=== PATIENT | female | born 1935 | race Caucasian/White ===

== ENCOUNTER 2018-05-26 10:22 | Inpatient (IN) | payer MEDICARE ==
[~2018-05-26] VITALS: Ht 160 cm; Wt 73.0 kg
[~2018-05-26 10:22] MED LIST: METH500T PO; PHEN-873 PO
[2018-05-26 11:12] LABS: ALANINE AMINOTRANSFERASE 23 U/L (12-78); ALBUMIN 3.7 G/DL (3.4-5.0); ALKALINE PHOSPHATASE 87 IU/L (46-116); ANION GAP 8 (8-16); ASPARTATE AMINO TRANSFERASE 17 U/L (10-37); BILIRUBIN,TOTAL 0.3 MG/DL (0.1-1.0); BLOOD UREA NITROGEN 14 MG/DL (7-18); BUN/CREATININE RATIO 15.2 (6.6-38.0); CALCIUM 9.3 MG/DL (8.5-10.1); CHLORIDE 96 MMOL/L (99-107); CREATININE 0.92 MG/DL (0.40-0.90); GLUCOSE 84 MG/DL (70-104); POTASSIUM 3.9 MMOL/L (3.5-5.1); SODIUM 131 MMOL/L (135-145); TOTAL PROTEIN 7.3 G/DL (6.4-8.2); eGFR 59 ML/MIN
[2018-05-26 11:15] LABS: BASOPHILS % (AUTO) 0.3 % (0-1); EOSINOPHILS # (AUTO) 0.1 X10'3 (0-0.9); EOSINOPHILS % (AUTO) 1.4 % (0-6); HEMATOCRIT 41.6 % (35.0-45.0); HEMOGLOBIN 14.2 g/dl (12.0-16.0); LYMPHOCYTES # (AUTO) 1.2 X10'3 (1.1-4.8); LYMPHOCYTES % (AUTO) 15.2 % (21-51); MEAN CORPUSCULAR HEMOGLOBIN 30.7 PG (27.0-31.0); MEAN CORPUSCULAR HGB CONC 34.2 % (33.0-36.5); MEAN CORPUSCULAR VOLUME 89.9 FL (78-98); MEAN PLATELET VOLUME 7.2 FL (7.4-10.4); MONOCYTES # (AUTO) 0.9 X10'3 (0-0.9); MONOCYTES % (AUTO) 11.4 % (2-12); NEUTROPHILS # (AUTO) 5.6 X10'3 (1.8-7.7); NEUTROPHILS % (AUTO) 71.7 % (42-75); PLATELET COUNT 331 X10'3 (140-440); RED BLOOD COUNT 4.63 X10'6 (4.20-5.60); RED CELL DISTRIBUTION WIDTH 13.5 % (11.5-14.5); WHITE BLOOD COUNT 7.8 X10'3 (4.5-11.0)
[2018-05-26] MEDS ORDERED: normal saline 1000ml 1,000 ML IV ONE (11:15)
[2018-05-26] MEDS ORDERED: acetaminophen 325mg tablet PO ONE (11:40)
[2018-05-26] MEDS ORDERED: iohexol 350MG/ML 100ml bottle IV ONE (11:55)
[2018-05-26] MEDS ORDERED: normal saline 500ml IV soln 500 ML IV ONE (13:10)
[2018-05-26] MEDS: normal saline 1000ml 1,000 ML IV SCH ×2 (13:20→23:40)
[2018-05-26 13:43] LABS: D-DIMER 0.22 MG/L FEU (0-0.50)
[2018-05-26 13:47] LABS: LIPASE 144 U/L (73-393)
[2018-05-26] MEDS ORDERED: HYDROcodone/acetaminophen 5mg/325mg tablet PO PRN (13:50)
[2018-05-26] MEDS ORDERED: morphine 4 MG/ML inj SYRINge IV PRN ×2 (13:50)
[2018-05-26] MEDS ORDERED: mag hydrox/Alum hydrox/simeth 30ml oral suspension PO PRN (13:50)
[2018-05-26] MEDS ORDERED: magnesium hydroxide 30ml (MOM) UD suspension PO PRN (13:50)
[2018-05-26] MEDS ORDERED: acetaminophen 650mg rectal suppository RC PRN (13:50)
[2018-05-26] MEDS ORDERED: bisacodyl 10mg suppository rectal RC PRN (13:50)
[2018-05-26] MEDS ORDERED: HYDROcodone/acetaminophen 10/325mg tab PO PRN (13:50)
[2018-05-26] MEDS ORDERED: metoclopramide 5 mg/ml inj IV PRN (13:50)
[2018-05-26] MEDS ORDERED: ondansetron/PF 4mg/2ml inj IV PRN (13:50)
[2018-05-26] MEDS ORDERED: acetaminophen 325mg tablet PO PRN ×2 (13:50)
[2018-05-26] MEDS ORDERED: nitroGLYCERIN 0.4mg SUBLingual tab SL PRN (14:00)
[2018-05-26] MEDS ORDERED: metoprolol tartrate 1mg/ml inj IV PRN (14:00)
[2018-05-26] MEDS ORDERED: regadenoson 0.4mg/5ml syringe IV ONE (14:00)
[2018-05-26] MEDS ORDERED: CAFFEINE CITRATE 60 MG/3 ML injection vial IV PRN (14:00)
[2018-05-26 14:09] LABS: PARTIAL THROMBOPLASTIN TIME 27 SECONDS (22-32); PROTHROMBIN TIME 10.1 SECONDS (9.0-12.0)
[2018-05-26] MEDS ORDERED: LEVO25TA2 PO (14:36)
[2018-05-26] MEDS ORDERED: PRAV10TA39 PO (14:36)
[2018-05-26] MEDS ORDERED: PREVCR VG (14:36)
[2018-05-26] MEDS ORDERED: MULT-38 PO (14:36)
[2018-05-26] MEDS ORDERED: OMEP40CA37 PO (14:36)
[2018-05-26] MEDS ORDERED: PROP1DRO7 OP (14:36)
[2018-05-26] MEDS ORDERED: MAGN400O6 PO (14:36)
[2018-05-26] MEDS ORDERED: METH479P PO (14:36)
[2018-05-26] MEDS ORDERED: OSC500T PO (14:36)
[2018-05-26] MEDS ORDERED: SENN-166 PO (14:36)
[2018-05-26 16:25] VITALS: BP 172/66
[2018-05-26 18:00] VITALS: BP 141/56
[2018-05-26] MEDS: heparin, porcine 5000 units/ml vial SQ SCH (20:00)
[2018-05-26] MEDS: docusate sod 100mg capsule PO SCH (20:23)
[2018-05-26] MEDS: pantoprazole 40 MG vial IV SCH (20:23)
[2018-05-26] MEDS ORDERED: temazepam 15mg capsule PO PRN (21:00)
[2018-05-27] VITALS (23 sets, daily range): BP systolic 135–176; BP diastolic 55–81
[2018-05-27 04:41] LABS: BASOPHILS % (AUTO) 0.8 % (0-1); EOSINOPHILS # (AUTO) 0.1 X10'3 (0-0.9); EOSINOPHILS % (AUTO) 2.1 % (0-6); HEMATOCRIT 38.5 % (35.0-45.0); HEMOGLOBIN 13.1 g/dl (12.0-16.0); LYMPHOCYTES # (AUTO) 1.2 X10'3 (1.1-4.8); LYMPHOCYTES % (AUTO) 21.3 % (21-51); MEAN CORPUSCULAR HEMOGLOBIN 30.6 PG (27.0-31.0); MEAN CORPUSCULAR HGB CONC 33.9 % (33.0-36.5); MEAN CORPUSCULAR VOLUME 90.1 FL (78-98); MEAN PLATELET VOLUME 7.2 FL (7.4-10.4); MONOCYTES # (AUTO) 0.7 X10'3 (0-0.9); MONOCYTES % (AUTO) 12.1 % (2-12); NEUTROPHILS # (AUTO) 3.5 X10'3 (1.8-7.7); NEUTROPHILS % (AUTO) 63.7 % (42-75); PLATELET COUNT 298 X10'3 (140-440); RED BLOOD COUNT 4.28 X10'6 (4.20-5.60); RED CELL DISTRIBUTION WIDTH 13.8 % (11.5-14.5); WHITE BLOOD COUNT 5.5 X10'3 (4.5-11.0)
[2018-05-27 06:29] LABS: ALANINE AMINOTRANSFERASE 24 U/L (12-78); ALBUMIN 3.3 G/DL (3.4-5.0); ALBUMIN/GLOBULIN RATIO 1.1 (1.1-1.5); ALKALINE PHOSPHATASE 67 IU/L (46-116); ANION GAP 11 (8-16); ASPARTATE AMINO TRANSFERASE 21 U/L (10-37); BILIRUBIN,TOTAL 0.3 MG/DL (0.1-1.0); BLOOD UREA NITROGEN 11 MG/DL (7-18); BUN/CREATININE RATIO 14.5 (6.6-38.0); CALCIUM 8.5 MG/DL (8.5-10.1); CHLORIDE 103 MMOL/L (99-107); CREATININE 0.76 MG/DL (0.40-0.90); GLUCOSE 88 MG/DL (70-104); SODIUM 136 MMOL/L (135-145); TOTAL CARBON DIOXIDE 21.9 MMOL/L (24-32); TOTAL PROTEIN 6.3 G/DL (6.4-8.2); eGFR 73 ML/MIN
[2018-05-27] MEDS: lisinopril 5mg tablet PO SCH ×2 (08:00→12:12)
[2018-05-27] MEDS ORDERED: atorvastatin 10mg tablet PO SCH (08:00)
[2018-05-27] MEDS ORDERED: nitroGLYCERIN 0.1mg/hour patch TD SCH (08:00)
[2018-05-27] MEDS: heparin, porcine 5000 units/ml vial SQ SCH (08:00)
[2018-05-27] MEDS ORDERED: CAFFEINE CITRATE 60 MG/3 ML injection vial IV ONE (09:07)
[2018-05-27] MEDS ORDERED: regadenoson 0.4mg/5ml syringe IV ONE (09:08)
[2018-05-27] MEDS ORDERED: pneumococcal 23-VAL P-sac vacc 25 mcg/0.5ml vial IMVAC ONE (10:00)
[2018-05-27] MEDS: pantoprazole 40 MG vial IV SCH (11:34)
[2018-05-27] MEDS: docusate sod 100mg capsule PO SCH (11:34)
[2018-05-27] MEDS: normal saline 1000ml 1,000 ML IV SCH (11:35)
[2018-05-27] MEDS ORDERED: non-formulary drug (Omeprazole (Prilosec) 1 CAP) PO PRN (14:05)
[2018-05-27] MEDS ORDERED: LISI-604 PO (15:43)
[2018-05-27] MEDS ORDERED: estrogens, conjug. vaginal cream 45gm tube VG SCH (20:00)
[2018-05-27] MEDS ORDERED: magnesium hydroxide 30ml (MOM) UD suspension PO SCH (20:00)
[2018-05-28] MEDS ORDERED: calcium carbonate 500mg tablet PO SCH ×2 (08:00)
[2018-05-28] MEDS ORDERED: levoTHYROXINE 25mcg tablet PO SCH (08:00)
[2018-05-28] MEDS ORDERED: multivitamins, therapeutics tablet PO SCH (08:00)
[2018-05-28] MEDS ORDERED: pravastatin 10mg tablet PO SCH (08:00)
== END 2018-05-27 17:26 | disposition home or self-care (01) | DRG 392 ==
LOC: ER 10:23 → ED HOLD 13:47 → EDBEDREQ 15:41 → SUR 3N 16:25
PROVIDERS: ADMIT Family Medicine; ATTEND Family Medicine
PROC: B32T1ZZ Computerized Tomography (CT Scan) of Left Pulmonary Artery using Low Osmolar Contrast (ICD-10-PCS; principal; 2018-05-26)
PROC: B3201ZZ Computerized Tomography (CT Scan) of Thoracic Aorta using Low Osmolar Contrast (ICD-10-PCS; 2018-05-26)
PROC: B32S1ZZ Computerized Tomography (CT Scan) of Right Pulmonary Artery using Low Osmolar Contrast (ICD-10-PCS; 2018-05-26)
PROC: 4A02XM4 Measurement of Cardiac Total Activity, External Approach (ICD-10-PCS; 2018-05-27)
PROC: 3E033HZ Introduction of Radioactive Substance into Peripheral Vein, Percutaneous Approach (ICD-10-PCS; 2018-05-27)
PROC: 3E0234Z Introduction of Serum, Toxoid and Vaccine into Muscle, Percutaneous Approach (ICD-10-PCS; 2018-05-27)
DX: K21.9 Gastro-esophageal reflux disease without esophagitis (principal); E87.1 Hypo-osmolality and hyponatremia; E86.0 Dehydration; E03.9 Hypothyroidism, unspecified; E78.00 Pure hypercholesterolemia, unspecified; E78.5 Hyperlipidemia, unspecified; I10 Essential (primary) hypertension; I34.1 Nonrheumatic mitral (valve) prolapse; K29.70 Gastritis, unspecified, without bleeding; K44.9 Diaphragmatic hernia without obstruction or gangrene; Z90.710 Acquired absence of both cervix and uterus; Z79.899 Other long term (current) drug therapy; Z88.6 Allergy status to analgesic agent; Z87.440 Personal history of urinary (tract) infections; Z23 Encounter for immunization
CPT/HCPCS: 36415; 71045; 71275; 74174; 78452; 80053; 83690; 83735; 83880; 84443; 84484; 85025; 85379; 85610; 85730; 87070; 90732; 93005; 93017; 96360; 96361; 99285; A4620; A9500; C9113; J7030; Q9967